=== PATIENT | female | born 1935 | race Caucasian/White ===

== ENCOUNTER → 2016-05-22 | Outpatient (CLI) | payer MEDICARE ==
[2016-05-22 08:24] LABS: BASOPHILS % (AUTO) 1 % (0-2); EOSINOPHILS # (AUTO) 0.3 10^3uL; EOSINOPHILS % (AUTO) 4 % (0-4); LYMPHOCYTES # (AUTO) 1.5 X10^3; MEAN CORPUSCULAR HEMOGLOBIN 30.4 PG (26.0-34.0); MEAN CORPUSCULAR HGB CONC 34.8 g/dL (31.0-37.0); MEAN CORPUSCULAR VOLUME 87 FL (80-100); MEAN PLATELET VOLUME 9.2 FL (6.0-9.5); MONOCYTES # (AUTO) 0.8 X10^3; MONOCYTES % (AUTO) 11 % (3-11); NEUTROPHILS # (AUTO) 4.6 X10^3; NEUTROPHILS % (AUTO) 64 % (51-67); PLATELET COUNT 269 10^3uL (150-450); WHITE BLOOD COUNT 7.24 10^3uL (4.0-11.0)
[2016-05-22 08:52] LABS: ALBUMIN 3.8 g/dL (3.4-5.0); ANION GAP 14.8 MEQ/L (3-15); CALCULATED IONIZED CALCIUM 4.3 mg/dL (3.8-4.6); TOTAL PROTEIN 6.6 g/dL (6.4-8.5)
== END ==
LOC: LAB 08:06
PROVIDERS: ATTEND Internal Medicine
DX: Z00.00 Encounter for general adult medical examination without abnormal findings (principal); E10.10 Type 1 diabetes mellitus with ketoacidosis without coma; I10 Essential (primary) hypertension; G64 Other disorders of peripheral nervous system; E03.8 Other specified hypothyroidism; E78.4 Other hyperlipidemia
CPT/HCPCS: 36415; 80053; 80061; 82043; 83036; 84443; 85025

== ENCOUNTER → 2016-08-28 | Outpatient (CLI) | payer MEDICARE ==
--- NOTE | 2016-08-28 11:34 | Diagnostic Imaging Report ---
Indication: 81-year-old postmenopausal female for screening osteoporosis. Comparison: 05/20/2014 Technique: DEXA of the lumbar spine and both hips was performed. Findings: The L2-L4 vertebrae were used for assessment of the lumbar spine remains consistent with prior examinations. The bone mineral density for the total lumbar spine is 1.315 g/cm2, and the T score is 1.0. The Z score is 2.0. The left femoral neck has a bone density of 0.753 g/cm2, and the T score is -1.9. The right femoral neck has a bone density of 0.792 g/cm2, and the T score is -1.6. There has been no statistically significant change in the bone mineral density of the total hips compared to prior examination. Impression: 1. Osteopenia (low bone mass) per World [employer] Organization criteria. 2. Bone mineral density has not significantly changed since prior examination of 05/20/2014. 3. Consider followup DEXA in one year to reassess bone mineral density. Dictated by: Dictated on workstation # [id number]
== END ==
LOC: RAD 09:44
PROVIDERS: ATTEND Internal Medicine
DX: Z78.0 Asymptomatic menopausal state (principal)
CPT/HCPCS: 77080